=== PATIENT | female | born 1940 | race Caucasian/White ===

== ENCOUNTER 2018-01-16 14:47 | Outpatient (CLI) | payer MEDICARE ==
--- NOTE | 2018-01-16 15:50 | RAD ---
CHEST TWO VIEWS 01/16/18 HISTORY: Cough. Congestion. FINDINGS: No comparison. Cardiac silhouette is unremarkable. Pulmonary vasculature is slightly engorged with mild bilateral pe rihilar and bibasilar infiltrates. Mediastinum is midline with aortic calcification. There is no loba r consolidation, pneumothorax, or pleural fluid apparent. IMPRESSION: 1. Borderline pulmonary vascular congestion. 2. Atherosclerosis. POS: [facility]
== END 2018-01-16 14:48 | disposition home or self-care (01) ==
LOC: MADRAD 14:47
PROVIDERS: ATTEND Obstetrics & Gynecology
DX: R05 Cough (principal); I70.90 Unspecified atherosclerosis
CPT/HCPCS: 71046

== ENCOUNTER 2019-03-19 11:23 | Emergency (ER) | payer MEDICARE ==
[2019-03-19 12:17] LABS: #Eosinphils 0.1 thou/uL (0.0-0.7); #Lymphocytes 0.6 thou/uL (1.20-3.40); #Monocytes 0.3 thou/uL (0.11-0.59); #Neutrophils 2.2 thou/uL (1.40-6.50); %Basophils 0.9 % (0.0-1.0); %Eosinophils 3.1 % (0.0-10.0); %Lymphocytes 19.2 % (21.0-51.0); %Neutrophils 68.8 % (42.0-75.0); Hemoglobin 10.6 g/dL (12.0-16.0); INR-International Normal Ratio 1.1; Mean Corpuscular Hemoglobin 27.5 pg (27.0-31.0); Mean Corpuscular Volume 85.9 fL (78.0-98.0); Mean Platelet Volume 9.8 fL (7.4-10.4); Platelet Count 53 thou/uL (130-400); Prothrombin Time 14.1 SEC (12.0-14.7); Red Blood Cell (RBC) Count 3.76 mill/uL (4.20-5.40); White Blood Cell (WBC) Count 3.2 thou/uL (4.8-10.8)
--- NOTE | 2019-03-19 12:21 | RAD ---
RADIOGRAPH CHEST 1 VIEW: DATE: 03/19/2019 TIME: 12:07 PM HISTORY: 79-year-old female with dyspnea COMPARISON: 01/16/2018 FINDINGS: Cardiomegaly. New finding of diffuse pulmonary venous engorgement. No janay pulmonary alveolar edema, although interstitial markings are prominent at lung bases perhaps representing minimal pulmonary interstitial edema. No pneumothorax. IMPRESSION: Mild congestive heart failure
[2019-03-19 12:24] LABS: Anisocytosis SLIGHT = 6-15 cells (100X) (0-5/hpf); Platelet Morphology Comment Appears Decreased
[2019-03-19 12:30] LABS: ALT (SGPT) 20 U/L (8-55); AST (SGOT) 39 U/L (5-34); Albumin 3.1 g/dL (3.4-4.8); Alkaline Phosphatase 195 U/L (40-150); Anion Gap 12 mmol/L (10-20); BUN (Urea Nitrogen) 19 mg/dL (9.8-20.1); Bilirubin, Total 2.8 mg/dL (0.2-1.2); Calc. Creatinine Clearance 0 mL/min (70-130); Calcium 8.8 mg/dL (7.8-10.44); Carbon Dioxide 28 mmol/L (23-31); Chloride 103 mmol/L (98-107); Estimated GFR-MDRD 52; Globulin 3.2 g/dL (2.4-3.5); Glucose 235 mg/dL (83-110); Potassium 4.9 mmol/L (3.5-5.1); Protein, Total 6.3 g/dL (6.0-8.3); Sodium 138 mmol/L (136-145)
[2019-03-19] MEDS ORDERED: Nitroglycerin 2% Ointment 1 INCH/1 GM Packet ONE (13:49)
[2019-03-19] MEDS ORDERED: Furosemide 40 MG/4 ML VIAL ONE (13:49)
== END 2019-03-19 14:25 | disposition short-term general hospital (02) ==
LOC: MADERS 11:23
DX: I11.0 Hypertensive heart disease with heart failure (principal); I50.9 Heart failure, unspecified; R18.8 Other ascites; E11.9 Type 2 diabetes mellitus without complications; Z79.899 Other long term (current) drug therapy; Z79.84 Long term (current) use of oral hypoglycemic drugs
CPT/HCPCS: 36415; 71045; 80053; 83880; 84484; 85025; 85610; 93005; 96374; J1940

== ENCOUNTER 2019-05-30 04:18 | Emergency (ER) | payer MEDICARE ==
[2019-05-30 06:09] LABS: #Eosinphils 0.1 thou/uL (0.0-0.7); #Lymphocytes 0.7 thou/uL (1.20-3.40); #Monocytes 0.3 thou/uL (0.11-0.59); #Neutrophils 2.5 thou/uL (1.40-6.50); %Basophils 1.1 % (0.0-1.0); %Eosinophils 2.1 % (0.0-10.0); %Lymphocytes 19.3 % (21.0-51.0); %Monocytes 7.9 % (0.0-10.0); %Neutrophils 69.6 % (42.0-75.0); Mean Corpuscular HGB CONC 32.1 g/dL (32.0-36.0); Mean Corpuscular Hemoglobin 26.9 pg (27.0-31.0); Mean Corpuscular Volume 83.9 fL (78.0-98.0); Mean Platelet Volume 10.1 fL (7.4-10.4); Platelet Count 51 thou/uL (130-400); Platelet Morphology Comment NO CLUMPING PRESENT; RBC Distribution Width 13.9 % (11.5-14.5); White Blood Cell (WBC) Count 3.5 thou/uL (4.8-10.8)
[2019-05-30 06:14] LABS: MDiff Complete? YES; Manual Diff?? NO
[2019-05-30 06:16] LABS: ALT (SGPT) 22 U/L (8-55); AST (SGOT) 30 U/L (5-34); Albumin 3.4 g/dL (3.4-4.8); Alkaline Phosphatase 190 U/L (40-150); Anion Gap 18 mmol/L (10-20); BUN (Urea Nitrogen) 33 mg/dL (9.8-20.1); Calc. Creatinine Clearance 0 mL/min (70-130); Calcium 9.7 mg/dL (7.8-10.44); Carbon Dioxide 24 mmol/L (23-31); Chloride 99 mmol/L (98-107); Estimated GFR-MDRD 29; Globulin 3.6 g/dL (2.4-3.5); Glucose 307 mg/dL (83-110); Lipase 25 U/L (8-78); Potassium 5.5 mmol/L (3.5-5.1); Sodium 135 mmol/L (136-145)
[2019-05-30 07:50] LABS: Bilirubin Negative (Negative); Blood, Urine Trace (Negative); Clarity Clear (Clear); Glucose, Urine (Dipstick) 500 mg/dL (Negative); Leukocyte Small (Negative); Nitrite Negative (Negative); Protein, Urine (Dipstick) Negative (Neg-Trace)
[2019-05-30 07:52] LABS: Bacteria/HPF Rare-Few HPF (None Seen); Squamous Epithelial 0-3 HPF (0-3)
[2019-05-30] MEDS ORDERED: Sodium Chloride 0.9% 1,000 ML ONE (08:34)
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
[2019-05-30] MEDS ORDERED: cefTRIAXone\\ROCEPHIN 2 GM VIAL ONE (09:04)
[2019-05-30] MEDS ORDERED: Sodium Chloride 0.9% 100 ML ONE (09:04)
[2019-05-30] MEDS ORDERED: Iopamidol 370 76% 100 ML VIAL ONE (10:44)
== END 2019-05-30 09:10 | disposition short-term general hospital (02) ==
LOC: MADERS 04:18
DX: N17.9 Acute kidney failure, unspecified (principal); K74.60 Unspecified cirrhosis of liver; E78.5 Hyperlipidemia, unspecified; M54.5 Low back pain; E11.9 Type 2 diabetes mellitus without complications; Z87.891 Personal history of nicotine dependence; Z79.84 Long term (current) use of oral hypoglycemic drugs; Z79.899 Other long term (current) drug therapy; V89.2XXA Person injured in unspecified motor-vehicle accident, traffic, initial encounter
CPT/HCPCS: 36415; 74177; 80053; 81003; 81015; 83605; 83690; 85025; 87086; 96361; 96374; J0696; J3490; J7050; Q9967